=== PATIENT | male | born 1990 | race African-American/Black ===

== ENCOUNTER 2019-04-17 10:29 | Emergency (ER) | payer OTHER ==
[~2019-04-17] VITALS: Ht 177.8 cm; Wt 72.1 kg
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
--- NOTE | 2019-04-17 11:30 | NUR ---
MD TO BEDSIDE FOR ASSESSMENT
[2019-04-17] MEDS ORDERED: IBUPROFEN 600 MG TABLET ONE (11:37)
[2019-04-17] MEDS ORDERED: ASPIRIN 81 MG TABLET CHEW ONE (11:37)
[2019-04-17 11:49] LABS: BASOPHILS # (AUTO) 0.03 x10^3/uL (0-0.1); BASOPHILS % (AUTO) 1 % (0-1); EOSINOPHILS # (AUTO) 0.06 x10^3/uL (0-0.4); EOSINOPHILS % (AUTO) 2 % (1-7); LYMPHOCYTES # (AUTO) 1.34 x10^3/uL (1-3.4); LYMPHOCYTES % (AUTO) 43 % (22-44); MD NO; MEAN CORPUSCULAR HEMOGLOBIN 30.6 pg (27.5-34.5); MEAN CORPUSCULAR HGB CONC 33.7 g/dL (33.2-36.2); MEAN CORPUSCULAR VOLUME 90.7 fL (81-97); MONOCYTES # (AUTO) 0.48 x10^3/uL (0.2-0.8); MONOCYTES % (AUTO) 15 % (2-9); NEUTROPHILS # (AUTO) 1.23 x10^3/uL (1.8-6.8); NEUTROPHILS % (AUTO) 39 % (42-75); PLATELET COUNT 189 x10^3/uL (130-400); RED BLOOD COUNT 4.99 x10^6/uL (4.38-5.82); RED CELL DISTRIBUTION WIDTH 13.3 % (9.4-14.8)
--- NOTE | 2019-04-17 11:52 | NUR ---
TAKEN TO RAD
[2019-04-17 11:55] LABS: ANION GAP 7 mmol/L (5-15); CALCIUM 8.9 mg/dL (8.5-10.1); CHLORIDE 110 mmol/L (98-107)
[2019-04-17 11:59] LABS: CREATININE 0.96 mg/dL (0.7-1.3); TROPONIN I < 0.015 ng/mL (0.000-0.045)
[2019-04-17] MEDS ORDERED: ASPIRIN 81 MG TABLET CHEW PO ONE (12:00)
[2019-04-17] MEDS ORDERED: IBUPROFEN 600 MG TABLET PO ONE (12:00)
[2019-04-17 12:20] VITALS: BP 101/62
--- NOTE | 2019-04-17 12:21 | NUR ---
ALL RESULTS BACK AT THIS TIME, CHART UP FOR RECHECK
[2019-04-17 13:25] LABS: HCT (SEDRATE) 45.2 % (39.2-51.8)
== END 2019-04-17 12:40 | disposition home or self-care (01) ==
LOC: ED 12:26
DX: I30.0 Acute nonspecific idiopathic pericarditis (principal)
CPT/HCPCS: 36415; 71046; 80048; 82040; 83880; 84484; 85025; 85651; 93005; 99284

== ENCOUNTER 2019-05-07 21:44 | Emergency (ER) | payer OTHER ==
[~2019-05-07] VITALS: Ht 177.8 cm; Wt 70.6 kg
[2019-05-07 21:45] VITALS: BP 139/50
[2019-05-07] MEDS ORDERED: KETOROLAC 30 MG/1 ML IM ONE (22:00)
[2019-05-07] MEDS ORDERED: LORazepam 1MG TABLET PO ONE (22:00)
--- NOTE | 2019-05-07 22:00 | NUR ---
PT AMBULATES FROM TRIAGE TO ROOM WITH STEADY GAIT.
[2019-05-07] MEDS ORDERED: KETOROLAC 30 MG/1 ML ONE ×2 (22:03→22:04)
[2019-05-07] MEDS ORDERED: LORazepam 1MG TABLET ONE (22:04)
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
[2019-05-07 22:43] LABS: ALANINE AMINOTRANSFERASE 19 U/L (12-78); ALBUMIN 4.1 g/dL (3.4-5.0); ANION GAP 3 mmol/L (5-15); CALCIUM 8.6 mg/dL (8.5-10.1); CHLORIDE 110 mmol/L (98-107); CREATININE 0.94 mg/dL (0.7-1.3)
[2019-05-07 22:48] LABS: ALKALINE PHOSPHATASE 39 U/L (45-117); BASOPHILS # (AUTO) 0.03 x10^3/uL (0-0.1); BASOPHILS % (AUTO) 1 % (0-1); BILIRUBIN,TOTAL 0.5 mg/dL (0.2-1.0); EOSINOPHILS # (AUTO) 0.07 x10^3/uL (0-0.4); EOSINOPHILS % (AUTO) 3 % (1-7); LYMPHOCYTES # (AUTO) 1.41 x10^3/uL (1-3.4); LYMPHOCYTES % (AUTO) 47 % (22-44); MD NO; MEAN CORPUSCULAR HEMOGLOBIN 30.4 pg (27.5-34.5); MEAN CORPUSCULAR HGB CONC 33.8 g/dL (33.2-36.2); MEAN CORPUSCULAR VOLUME 90.1 fL (81-97); MEAN PLATELET VOLUME 8.1 fL (7.4-10.4); MONOCYTES # (AUTO) 0.36 x10^3/uL (0.2-0.8); MONOCYTES % (AUTO) 12 % (2-9); NEUTROPHILS # (AUTO) 1.16 x10^3/uL (1.8-6.8); NEUTROPHILS % (AUTO) 38 % (42-75); PLATELET COUNT 183 x10^3/uL (130-400); RED CELL DISTRIBUTION WIDTH 12.9 % (9.4-14.8); TOTAL PROTEIN 6.8 g/dL (6.4-8.2); TROPONIN I < 0.015 ng/mL (0.000-0.045)
== END 2019-05-07 23:20 | disposition home or self-care (01) ==
LOC: ED 22:10
DX: R07.2 Precordial pain (principal)
CPT/HCPCS: 36415; 71046; 80053; 84484; 85025; 93005; 96372; 99284; J1885